=== PATIENT | female | born 1965 | race African-American/Black ===

== ENCOUNTER 2023-05-07 19:45 | Emergency (ER) | payer BC ==
[2023-05-07 19:53] VITALS: TEMP 98.1; BMI 28.3
[2023-05-07] MEDS ORDERED: SODIUM CHLORIDE 1,000 ML IV STA (20:10)
[2023-05-07 20:55] LABS: HEMATOCRIT 40.5 % (32.4-45.2); HEMOGLOBIN 13.9 G/dL (10.7-15.3); MCH 32.8 pg (25.7-33.7); MCHC 34.2 g/dl (32.0-36.0); MEAN CELL VOLUME 95.8 fl (80-96); MEAN PLT VOLUME 8.3 fl (7.5-11.1); PLATELET COUNT 240.5 10^3/uL (134-434); RBC 4.23 10^6/uL (3.60-5.2); RDW 14.1 % (11.6-15.6)
[2023-05-07 21:18] LABS: ALBUMIN 4.7 g/dl (3.4-5.0); BLOOD UREA NITROGEN 17.8 mg/dl (7-18); CALCIUM 9.4 mg/dl (8.5-10.1); POTASSIUM 4.9 mmol/L (3.5-5.1); SGPT/ALT 25.3 U/L (7-52); TOT PROT 7.2 g/dl (6.4-8.2)
[2023-05-07 21:24] LABS: PLATELET ESTIMATE ADEQUATE
[2023-05-07 22:32] VITALS: BP 136/60; PULSE 64; RESP 16
[2023-05-07 23:16] LABS: BILIRUBIN,TOTAL 0.5 mg/dL (0.2-1)
== END 2023-05-07 22:40 | disposition home or self-care (01) ==
LOC: FER 19:45
PROC: 3E0337Z Introduction of Electrolytic and Water Balance Substance into Peripheral Vein, Percutaneous Approach (ICD-10-PCS; principal; 2023-05-07)
DX: R42 Dizziness and giddiness (principal)
CPT/HCPCS: 36415; 80053; 84484; 85027; 93005; 99284-25